=== PATIENT | male | born 1940 | race Hispanic/Latino ===

== ENCOUNTER 2017-08-05 06:00 | Day surgery (SDC) | payer OTHER, MEDICARE ==
[2017-07-27 12:00] VITALS: BMI 28.1
[2017-08-05 06:44] VITALS: TEMP 97.8
[2017-08-05] MEDS ORDERED: Lactated Ringer's 1,000 ML IV ONE (08:03)
[2017-08-05] MEDS ORDERED: Propofol 10 mg/ml Inj (20 ML) ONE (08:08)
[2017-08-05 09:26] VITALS: RESP 15
[2017-08-05 09:50] VITALS: O2SAT 99
[2017-08-05 09:53] VITALS: BP 139/78; PULSE 71
== END 2017-08-05 09:40 | disposition home or self-care (01) ==
LOC: C.ENDO 06:00
PROVIDERS: ATTEND Internal Medicine Gastroenterology
DX: Z12.11 Encounter for screening for malignant neoplasm of colon (principal); K57.30 Diverticulosis of large intestine without perforation or abscess without bleeding; K64.1 Second degree hemorrhoids; I10 Essential (primary) hypertension; E78.5 Hyperlipidemia, unspecified; Z86.73 Personal history of transient ischemic attack (TIA), and cerebral infarction without residual deficits; N40.0 Benign prostatic hyperplasia without lower urinary tract symptoms; Z86.718 Personal history of other venous thrombosis and embolism; Z95.1 Presence of aortocoronary bypass graft; Z79.899 Other long term (current) drug therapy; Z79.01 Long term (current) use of anticoagulants; Z87.891 Personal history of nicotine dependence
CPT/HCPCS: 45380; 45385; 88305; J2704; J7120

== ENCOUNTER 2017-08-23 10:47 | Day surgery (SDC) | payer OTHER, MEDICARE ==
[2017-07-27 12:00] VITALS: BMI 28.1
[2017-08-23 12:04] VITALS: PULSE 60
[2017-08-23] MEDS ORDERED: Propofol 10 mg/ml Inj (20 ML) ONE (12:35)
[2017-08-23] MEDS ORDERED: Midazolam 2 MG/2 ML VIAL ONE (12:35)
[2017-08-23] MEDS ORDERED: Lactated Ringer's 1,000 ML IV ONE (12:40)
[2017-08-23] MEDS ORDERED: ceFAZolin 1 gm in NS 2 GM/200 ML BAG IVPB ONE (12:50)
[2017-08-23] MEDS ORDERED: Bupivacaine HCl 0.5% PF (30 ml) Inj ONE (12:51)
[2017-08-23] MEDS ORDERED: Rocuronium 10 mg/ml (10 ml) ONE (13:29)
[2017-08-23] MEDS ORDERED: Neostigmine Methylsulfate 3mg/3ml Syringe IV ONE (13:29)
--- NOTE | 2017-08-23 14:17 | PCM.SURG1 ---
Surgeon's Initial Post Op Note - Surgeon's Notes Surgeon: nicole Bird Trapper: 0 Type of Anesthesia: General LMA Anesthesia Administered By: minna Pre-Operative Diagnosis: right inguinal hernia with hydrocele Operative Findings: same- indirect with lemon sized hydrocele Post-Operative Diagnosis: same Operation Performed: repair rih with hydrocewle and phs mesh Specimen/Specimens Removed: 0 Estimated Blood Loss: EBL {In ML}: 10 Blood Products Given: N/A Drains Used: No Drains Post-Op Condition: Good Date of Surgery/Procedure: 08/23/17 Time of Surgery/Procedure: 14:17
[2017-08-23] MEDS ORDERED: Oxycodone/Acetaminophen 5/325 mg Tab PO PRN (14:18)
[2017-08-23] MEDS ORDERED: HYDROmorphone 0.5 mg/0.5 ml ISec IVP PRN (14:39)
[2017-08-23] MEDS ORDERED: HYDROmorphone 0.5 mg/0.5 ml ISec ONE (14:47)
[2017-08-23 15:42] VITALS: BP 153/81; RESP 20; TEMP 97; O2SAT 94
--- NOTE | 2017-08-24 01:44 | OP ---
PROCEDURE DATE: 08/23/2017 PREOPERATIVE DIAGNOSIS: Right inguinal hernia with hydrocele. POSTOPERATIVE DIAGNOSIS: Right inguinal hernia with hydrocele. PROCEDURE CARRIED OUT: Repair of right inguinal hernia with hydrocele. SURGEON: Zeke Haile Jr., MD GLASS LINED TANK REPAIRER: Dr. Son Aguiar, urologist. ANESTHESIOLOGIST: Moreno Ramirez MD INDICATIONS: The patient is a 77-year-old man with significant cardiac history who presents with increasing pain, discomfort in the right groin. Preoperative ultrasonography confirmed the presence of a hernia as well as a fairly large lemon sized right hydrocele. There is similar pathology on the left, but the right side is more symptomatic. OPERATIVE FINDINGS: The hernia was primarily an indirect hernia. The sac was identified and reduced. A PHS (Prolene hernia system), medium size, was used for the repair. DESCRIPTION OF THE PROCEDURE: The patient was given general anesthesia and intravenous antibiotics. A standard skin prep was carried down with placement of a Vi-Drape. An incision was made in the groin exposing the external oblique, which was divided. The cord and its contents identified. The defect identified. The sac identified, which was inverted back into the peritoneal cavity. The PHS Prolene hernia system unfurled at the appropriate location. A slit was made for the cord, and then the mesh was tacked down to the appropriate location. The external oblique was then closed, and the procedure was terminated. Blood loss for the procedure was approximately 10 mL. Operation carried out is repair of right inguinal hernia with PHS Prolene hernia system with hydrocele. Dr. Aguiar repaired the hydrocele, the testicle was brought down on the scrotum. He will dictate the second portion of that procedure. Zeke Haile Jr., MD cc: Mei Kilgore MD
== END 2017-08-23 16:48 | disposition home or self-care (01) ==
LOC: C.SDS 10:47
PROVIDERS: ATTEND Surgery Vascular Surgery
DX: K40.90 Unilateral inguinal hernia, without obstruction or gangrene, not specified as recurrent (principal); N43.3 Hydrocele, unspecified; I25.10 Atherosclerotic heart disease of native coronary artery without angina pectoris; E78.5 Hyperlipidemia, unspecified; I10 Essential (primary) hypertension; K21.9 Gastro-esophageal reflux disease without esophagitis; Z86.73 Personal history of transient ischemic attack (TIA), and cerebral infarction without residual deficits; Z95.1 Presence of aortocoronary bypass graft; Z87.891 Personal history of nicotine dependence
CPT/HCPCS: 49505; 55040; 88302; C1781; J0690; J1170; J2001; J2250; J2405; J2704; J2710; J3010; J7120

== ENCOUNTER 2018-06-02 10:03 | Outpatient (CLI) | payer OTHER, MEDICARE | END 2018-06-02 10:04 | disposition home or self-care (01) | LOC: C.LAB 10:03 ==

== ENCOUNTER 2018-08-04 09:38 | Outpatient (CLI) | payer OTHER, MEDICARE | END 2018-08-04 09:39 | disposition home or self-care (01) | LOC: C.CARD 09:38 | DX: I25.10 Atherosclerotic heart disease of native coronary artery without angina pectoris (principal); Z95.1 Presence of aortocoronary bypass graft; Z95.2 Presence of prosthetic heart valve; Z95.0 Presence of cardiac pacemaker ==